=== PATIENT | male | born 1965 | race Caucasian/White ===

== ENCOUNTER → 2019-12-19 | Outpatient (CLI) | payer OTHER ==
[2019-12-19 10:37] VITALS: BP 118/76
--- NOTE | 2019-12-19 10:37 | ER [facility] ASSESSMENT REPORT ---
Intake - In the Last 14 days Have you traveled outside [place]?: No Have you been in close contact with someone CONFIRMED: No Worked in Healthcare?: Yes - Symptoms Subjective Fever(Ferdinand feverish): No Chills: No Muscule Aches: No Runny Nose: Yes Sore Throat: No Cough (New or worsening chronic cough): No Shortness of breath: No Nausea or Vomiting: No Headache: Yes Abdominal Pain: No Diarrhea(3 or more loose stools in last 24 hours): No - Do you have any of the following Chronic lung disease: Asthma or emphysema or COPD: No Cystic Fibrosis: No Diabetes: No High Blood Pressure: No Cardiovascular Disease: Yes Cardiovascular Disease Comment: a fib Chronic Kidney Disease: No Chronic Liver Disease: No Chronic blood disorder like Sickle Cell Disease: No Weak immune system due to disease or medication: No Neurologic condition that limits movement: No Developmental delay - Moderate to Severe: No Recent (within past 2 weeks) or current : No Morbid Obesity (>100 pounds over ideal weight): No - Objective Temperature: 98.1 F Pulse Rate: 56 Respiratory Rate: 16 Blood Pressure: 118/76 O2 Sat by Pulse Oximetry: 97 Objective: Given above, testing performed: If Testing Performed: Test Specimen Type Sent to General - General Information source: Patient Notes: Patient presents to the [facility] for screening for the coronavirus. Patient reports loss of smell, headache and runny nose that started yesterday. Patient does work in healthcare. Past Medical History - General Information source: Patient - Social History Smoking Status: Never Smoker - Past Medical History Cardiac Medical History: Reports: Hx Atrial Fibrillation Musculoskeletal Medical History: Reports Other - Chronic back pain Surgical Hx: Negative Physical Exam - Notes Notes: The patient was evaluated during the global Covid 19 pandemic, and that diagnosis was suspected/considered upon their initial presentation. Their evaluation, treatment and testing was consistent with current guidelines for patients who present with complaints or symptoms that may be related to Covid 19. Full physical exam could not be performed due to covid 19 isolation protocols. Constitutional: Nontoxic appearance, no acute distress Eyes: Nonicteric, extraocular movements intact, sclera clear Cardiovascular: Heart rate and rhythm regular, no JVD Respiratory: Breath sounds clear bilaterally, nonlabored breathing, no use of accessory muscles, no tachypnea Gastrointestinal: Abdomen not distended Muculoskeletal: Moves all extremities well Skin: Normal color Neuro: Awake alert oriented, normal speech Psych: Normal mood and affect Diagnostic Results Laboratory Results: Patient presents with upper respiratory symptoms worrisome for possible Covid 19. Patient does not have emergency worrying symptoms such as difficulty breathing, shortness of breath, chest pain, pressure, confusion or cyanosis. Patient appears suitable for discharge as vital signs are stable and patient is nontoxic in appearance. Good return precautions have been discussed with patient, patient verbalized understanding and is agreeable with discharge plan of care at this time. Patient Education/Counseling Counseling/Education: Patient was provided with discharge information including: As a person under investigation for Covid 19, the [facility], division of public health advises you to adhere to the following guidance until your test results are reported to you. If your test result is positive, you will receive additional information from your provider and your local health department at that time. Remain at home until you are cleared by the health provider or public health authorities. Keep a log of visitors to your home, notify any visitors to your home of your isolation status. If you plan to move to a new address or leave the county, notify the local health department in your County. Call your doctor or seek care if you have an urgent medical need. Before seeking medical care, call ahead to get instructions from the provider before arriving at the medical office clinic or hospital. Notify them that you are being tested for the virus that causes Covid 19 so that arrangements can be made, as necessary, to prevent transmission to others in the healthcare setting. Next, notify the local health department in your county. If a medical emergency arises and you need to call 911, inform the first responders that you are being tested for the virus that causes Covid 19. Next, notify the local health department in your county. [facility] Discharge - Discharge Clinical Impression: Encounter for screening laboratory testing for COVID-19 virus Condition: Stable Disposition: Home; Selfcare
[2019-12-19 11:47] LABS: A TYPE INFLUENZA AG NEGATIVE (NEGATIVE); B INFLUENZA AG NEGATIVE (NEGATIVE)
== END ==
LOC: RDC 09:48
PROVIDERS: ATTEND Nurse Practitioner Family
DX: U07.1 COVID-19 (principal)
CPT/HCPCS: 87070; 87880; 87635; 87804; C9803; 99201